=== PATIENT | male | born 1975 | race Hispanic/Latino ===

== ENCOUNTER → 2024-02-01 | Outpatient (CLI) | payer OTHER ==
--- NOTE | 2024-02-01 15:36 | HMCIMG ---
LUMBAR W FLEXION/EXTENSION REASON: LUMBAR FACET ARTHROPATHY COMPARISON: None TECHNIQUE: Lumbar spine exam was performed including flexion and extension views, 4 views total. FINDINGS: There is a 7 mm anterior subluxation of L5 on S1 on the neutral view. There is lucency in the posterior elements consistent with spondylolisthesis. Disc interspace heights appear preserved and alignment appears otherwise normal. Anterior subluxation measures 11 mm on the flexion view and 7 mm on the extension view. IMPRESSION: 1. Spondylolysis with grade 1 spondylolisthesis, subluxation is 7 mm on the neutral view. 2. Subluxation is remains a 7 mm on extension and increases to 11 mm on flexion. 3. Otherwise unremarkable exam.
== END | disposition home or self-care (01) ==
LOC: RAH 12:12
PROVIDERS: ATTEND Physical Medicine & Rehabilitation
DX: S33.100A Subluxation of unspecified lumbar vertebra, initial encounter (principal); S33.39XA Dislocation of other parts of lumbar spine and pelvis, initial encounter; M47.816 Spondylosis without myelopathy or radiculopathy, lumbar region; X58.XXXA Exposure to other specified factors, initial encounter; Y93.89 Activity, other specified; Y92.89 Other specified places as the place of occurrence of the external cause; Y99.8 Other external cause status
CPT/HCPCS: 72114